=== PATIENT | female | born 1950 ===

== ENCOUNTER 2018-08-25 05:59 | Day surgery (SDC) | payer OTHER | END 2018-08-25 18:35 | disposition home or self-care (01) | LOC: CIR.AMB 05:59 | DX: C50.411 Malignant neoplasm of upper-outer quadrant of right female breast (principal) ==

== ENCOUNTER 2018-10-02 12:43 | Outpatient (CLI) | payer OTHER | END 2018-10-02 12:45 | disposition home or self-care (01) | LOC: SONOGRAMA 12:43 | DX: C50.411 Malignant neoplasm of upper-outer quadrant of right female breast (principal); N61.1 Abscess of the breast and nipple ==

== ENCOUNTER 2019-11-02 05:30 | Day surgery (SDC) | payer OTHER ==
[~2019-11-02 05:30] MED LIST: ADULT LOW DOSE81 M1 PO; ANASTROZOLE1 MG PO; ARICEPT5 MG PO; ATORVASTATIN CA40 MG PO; COD LIVER OIL1 EACH PO; COZAAR100 MG PO; LEVOTHYROXINE25 MCG PO; LOPRESS PO; MAGNESIUM400 MG PO; MULTIPLE VITAM1 EACH PO; NAMENDA10 MG PO; NORVASC2.5 M1 PO; TOLTERODINE TART4 MG PO; ZOLOFT50 MG PO
== END 2019-11-02 17:00 | disposition home or self-care, planned readmission (81) ==
LOC: CIR.AMB 05:30
DX: D05.11 Intraductal carcinoma in situ of right breast (principal)

== ENCOUNTER 2019-11-23 05:39 | Day surgery (SDC) | payer OTHER | END 2019-11-23 12:30 | disposition home or self-care (01) | LOC: CIR.AMB 05:39 | DX: C50.411 Malignant neoplasm of upper-outer quadrant of right female breast (principal) ==